=== PATIENT | male | born 1990 | race Caucasian/White ===

== ENCOUNTER 2022-01-11 11:26 | Outpatient (CLI) | payer OTHER, SELFPAY | END 2022-01-11 11:27 | disposition home or self-care (01) | LOC: ANHAUDIO 11:27 | PROVIDERS: PCP Internal Medicine; Visit Provider Internal Medicine | DX: Z01.10 Encounter for examination of ears and hearing without abnormal findings (principal) | CPT/HCPCS: 92567; 92587 ==

== ENCOUNTER 2023-02-28 12:34 | Outpatient (CLI) | payer OTHER, SELFPAY | END 2023-02-28 12:35 | disposition home or self-care (01) | LOC: ANHAUDIO 12:38 | PROVIDERS: PCP Internal Medicine; Visit Provider Internal Medicine | DX: Z01.10 Encounter for examination of ears and hearing without abnormal findings (principal); H91.91 Unspecified hearing loss, right ear | CPT/HCPCS: 92567; 92587 ==

== ENCOUNTER 2024-03-05 08:49 | Outpatient (CLI) | payer OTHER, SELFPAY | END 2024-03-05 08:50 | disposition home or self-care (01) | LOC: ANHAUDIO 08:49 | PROVIDERS: PCP Internal Medicine; Visit Provider Internal Medicine | DX: Z01.10 Encounter for examination of ears and hearing without abnormal findings (principal); H61.23 Impacted cerumen, bilateral | CPT/HCPCS: 92567; 92587 ==